=== PATIENT | female | born 1960 | race Caucasian/White ===

== ENCOUNTER 2024-08-27 11:25 | Emergency (ER) | payer BC, MEDICAID ==
[~2024-08-27] VITALS: Ht 157.5 cm; Wt 58.2 kg
[2024-08-27 13:24] VITALS: TEMP 97.8
[2024-08-27] MEDS ORDERED: TRAM50TA2 PO (14:21)
[2024-08-27] MEDS ORDERED: PRED50TA PO (14:21)
[2024-08-27] MEDS ORDERED: PROM118S5 PO (14:21)
[2024-08-27] MEDS: predniSONE 20 mg tablet PO ONE (14:56)
[2024-08-27] MEDS: ondansetron 4mg rapidly disintigrating tab PO ONE (14:56)
[2024-08-27 15:05] VITALS: BP 123/43; PULSE 82; RESP 18; O2SAT 95
== END 2024-08-27 15:07 | disposition home or self-care (01) ==
LOC: ER 11:27
DX: B34.9 Viral infection, unspecified (principal); Z88.6 Allergy status to analgesic agent; Z20.822 Contact with and (suspected) exposure to COVID-19
CPT/HCPCS: 36415; 71045; 87502; 87503; 87811; 99284; J7512